=== PATIENT | female | born 1940 | race Caucasian/White ===

== ENCOUNTER 2018-10-13 15:28 | Emergency (ER) | payer MEDICARE, OTHER ==
[~2018-10-13] VITALS: Ht 167.6 cm; Wt 65.9 kg
[2018-10-13] MEDS ORDERED: LISI-660 PO (18:17)
[2018-10-13 18:38] VITALS: BP 143/72
[2018-10-13 18:44] LABS: GLUCOSE,POINT OF CARE 109 MG/DL (70-110)
== END 2018-10-13 20:09 | disposition home or self-care (01) ==
LOC: EMS 15:29
DX: G30.9 Alzheimer's disease, unspecified (principal); F02.80 Dementia in other diseases classified elsewhere, unspecified severity, without behavioral disturbance, psychotic disturbance, mood disturbance, and anxiety; J44.9 Chronic obstructive pulmonary disease, unspecified; E11.9 Type 2 diabetes mellitus without complications; I10 Essential (primary) hypertension; F17.210 Nicotine dependence, cigarettes, uncomplicated; Z79.899 Other long term (current) drug therapy